=== PATIENT | male | born 1960 | race Caucasian/White ===

== ENCOUNTER 2024-01-17 15:02 | Emergency (ER) | payer SELFPAY ==
--- NOTE | 2024-01-17 15:39 | EDRN ---
"Patient arrived to the emergency department today / in asystole. Patient's followed shortly behind the ambulance crew. Per EMS patient was in asystole at 1420 and compressions were stopped at 1426 and patient remained in asystole. Dr. Sara (~) called time of at 1502. Family at bedside. "
--- NOTE | 2024-01-17 15:52 | ED.GENMED ---
History of Present Illness
General
Chief Complaint: CODE
Time Seen by Provider: 01/17/24 15:10
History of Present Illness
History of Present Illness:
63-year-old male with history of terminal lung cancer presenting to the emergency department with asystole and suspected pulmonary arrest. Patient arrives by medics, were called to home where patient was noted to be in increased respiratory
distress. had confirmed that patient was DNR/DNI. He was actively being treated for pneumonia, noted to have a hemoglobin of 6.6 and was due to get a transfusion in the next few days. Patient was considering hospice, however ultimately did
not want to go on hospice. En route to the hospital patient went asystole, so medics did not intervene. Patient arrives pulseless and unresponsive with at bedside confirming DNR/DNI status.
Phy Exam
Physical Exam
Physical Exam:
General: Unresponsive
HEENT: Mouth open, no purposeful breathing
Neck: appears supple
CV: asystolic
Resp: No respiratory effort
Abd: no distension
Extremities: No deformities
Neuro: alert, no focal neurologic deficit
: deferred
Rectal: deferred
Psych: unresponsive
Skin: pale
Course
Vital Signs
Initial and Last Documented VS:
Initial Vital Signs
Pulse Resp
0 0
01/17/24 15:02 01/17/24 15:02
Last Documented Vital Signs
Pulse Resp
0 0
01/17/24 15:02 01/17/24 15:02
MDM/Problems Addressed
MDM/Problems Addressed:
63-year-old male with history of terminal lung cancer presenting in asystole after a suspected respiratory arrest. No vital signs on arrival.
Patient arrives unresponsive, asystolic. Per medics, they were called to the house for respiratory distress, however DNR/DNI and patient lost pulses around 1420, arrived to our facility at 1500. at bedside on arrival, does confirm patient's
wishes are DNR/DNI. At this time, no additional interventions were performed. Time of 1502. 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 Will complete certificate and attempt to contact
primary care office for certification, VALERIE So.
16:00- Did discuss with ophthalmic medical technician, patient released. Officer Della Esposito
*Critical Care Note
Total Time (30-74mins, 75-104mins- exclusive of procedures): Not Applicable
ED Attending Note
-
Portions of this chart may have been created with voice recognition software.� Occasional wrong word or��sound alike� substitutions may have occurred due to the inherent limitations of voice recognition software.
Discharge Plan
Discharge Date and Time
Print Language: OCCITAN
--- NOTE | 2024-01-17 16:05 | EDRN ---
63 y/o M arrives to the emergency department in asystole by medics from home. Patient has a history of terminal lung cancer. Per the medics patient went into asystole on there way to the hospital at 1420. CRP was started. CPR was stopped at 1426 at
's request. Per the patient wished to be a DNR. Patient placed on cardiac specialist and the monitor showed asystole. Rhythm strip printed out. Dr. Ruiz called time of at 1502. Family remains at bedside and kidney one called.
== END 2024-01-17 18:24 | disposition expired ==
LOC: EMR 15:02
PROVIDERS: EMERGENCY PHYSICIAN Student in an Organized Health Care Education/Training Program; FAMILY PHYSICIAN Student in an Organized Health Care Education/Training Program
DX: R06.03 Acute respiratory distress (principal); Z66 Do not resuscitate; C80.1 Malignant (primary) neoplasm, unspecified
CPT/HCPCS: 99283